=== PATIENT | male | born 1945 | race Caucasian/White ===

== ENCOUNTER → 2017-01-09 | Outpatient (REF) | payer MEDICARE, BC ==
[~2017-01-09] MED LIST: /METO25TAB PO; /WARF25TA PO; AMLO5TAB2 PO; ASPI1TAB PO; ASPI81TA85 PO; BENA25CA2 PO; CIAL5TAB PO; COUM2.5T17 PO; CRES20TA PO; MELO15TA4 PO; MOBI15TA PO; OMEP20CA3 PO; PERC5TAB PO; PERC5TAB12 PO; SIMV20TA2 PO; TYLE325T5 PO; TYLE650T25 PO
== END ==
LOC: M LAB REF 15:02
PROVIDERS: ATTEND Urology
DX: R31.9 Hematuria, unspecified (principal)

== ENCOUNTER → 2018-05-27 | Outpatient (CLI) | payer MEDICARE ==
[~2018-05-27] MED LIST changes: +MELO15TA28 PO; -MELO15TA4 PO
--- NOTE | 2018-05-28 15:01 | HOLTMON ---
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 [facility] NOTES 701 PVCS, 118 PACS. TEMPLATES SHOW 2 PVC MORPHOLOGIES. RHYTHM SINUS HR [id number]. MULTIPLE DIARY ENTRIES DOCUMENTING ACTIVITIES ONLY 1 ENTRY WITH A PALPITAION WHICH WAS A PVC. NO PACS WERE SELECTED FOR REVIEW STRIP PG 20 SHOWS SLIGHTLY GREATER THAN 1MM DEPRESSION ST SEGMENT Electronically Signed On 05-28-2018 15:01:27 EST by Kamryn Olvera
== END ==
LOC: M EKG 13:49
PROVIDERS: ATTEND Nurse Practitioner Family
DX: I49.9 Cardiac arrhythmia, unspecified (principal)

== ENCOUNTER → 2020-08-24 | Outpatient (CLI) | payer MEDICARE ==
[~2020-08-24] MED LIST changes: -/METO25TAB PO; -/WARF25TA PO; -ASPI1TAB PO; +ASPI81TA26 PO; +COUM1TAB18 PO; +ISOVUE-300 61% 50ML VIAL As Ordered ONE; +LIDOCAINE 1% MDV 20ML VIAL As Ordered ONE; +METO1TAB87 PO; -SIMV20TA2 PO; +SIMV20TA22 PO; +TRIAMCINOLONE ACETONIDE SUSP 40 MG/ML VIAL (J3301) As Ordered ONE
--- NOTE | 2020-08-25 17:29 | REP ---
INDICATION: UNILAT OSTEOARTHRITIS. COMPARISON: None. TECHNIQUE: The procedure was performed under the direct supervision of Dr. Recio. The benefits and risks including but not limited to pain infection and bleeding and anaphylaxis were explained to the patient and informed consent was obtained. The left femoral neck was localized using fluoroscopic guidance. The skin was prepped and draped in a sterile fashion. 1% lidocaine was used as a local anesthetic. Using fluoroscopic guidance, and last image hold technology, a 22-gauge spinal needle was inserted and advanced to the femoral neck. 0.5 ml of Isovue-300 was injected to verify placement. Six ml of a solution containing 5 ml of 1% Xylocaine and 1 mL of Kenalog 40 mg was injected. The needle was then removed. The patient tolerated the procedure well and there were no immediate complications. Less than 6 seconds of fluoro time was utilized for this procedure. FINDINGS: None IMPRESSION: Fluoro guidance for left hip injection. <Electronically signed by Vinh Crandall > 08/24/20 [id number] <Electronically signed by Chepe Recio > 08/25/20 [id number]
== END ==
LOC: M RADPRO 09:21
PROVIDERS: ATTEND Orthopaedic Surgery
DX: M16.12 Unilateral primary osteoarthritis, left hip (principal)
CPT/HCPCS: 20610; 77002; J3301; Q9967